=== PATIENT | female | born 2000 ===

== ENCOUNTER 2024-12-12 14:43 | Emergency (ER) | payer MEDICARE, MEDICAID ==
[2024-12-12 15:05] VITALS: BP 126/78; PULSE 116
[2024-12-12] MEDS: Haloperidol Lactate 5 MG/ML SDV IM ONE (15:10)
[2024-12-12] MEDS: diphenhydrAMINE 50 MG/ML SDV IM ONE (15:12)
[2024-12-12] MEDS: LORazepam 2 MG/ML SDV IM ONE (15:13)
[2024-12-12] MEDS: OLANZapine 10 MG Vial IM ONE (15:18)
== END 2024-12-12 16:25 ==
LOC: CC.ED 14:43
DX: F84.0 Autistic disorder (principal); F29 Unspecified psychosis not due to a substance or known physiological condition; Z79.899 Other long term (current) drug therapy; Z79.84 Long term (current) use of oral hypoglycemic drugs
CPT/HCPCS: 96372; 99284; J1200; J1630; J2060